=== PATIENT | male | born 1965 | race African-American/Black ===

== ENCOUNTER 2021-07-27 12:07 | Emergency (ER) | payer SELFPAY ==
[~2021-07-27] VITALS: Ht 195.6 cm; Wt 90.7 kg
--- NOTE | 2021-07-27 12:27 | NUR ---
BIBS C/O BODY ACHES X 3 WEEKS, SORE THROAT, COUGH, AND CHILLS X 2 WEEKS. TOOK MEDS BUT DIDN'T WORK. AAOX4, BREATHING EVEN AND UNLABORED, RHONCHI HEARD ON BILATERAL LUNGS. TACHYCARDIC HR 106, PULSE OX 99% ON ROOM AIR.
--- NOTE | 2021-07-27 12:28 | NUR ---
SULEMAN JANE AT PT'S BEDSIDE
--- NOTE | 2021-07-27 12:55 | NUR ---
RAC #20G S/L; PATENT AND INTACT. BLOOD COLLECTED AND GIVEN TO LAB
--- NOTE | 2021-07-27 12:58 | NUR ---
RADIOLOGY AT BEDSIDE
[2021-07-27] MEDS ORDERED: IV NS 0.9% 1,000 ML BAG IV ONE (13:00)
--- NOTE | 2021-07-27 13:06 | NUR ---
COVID PCR AND ANTIGEN COLLECTED AND SENT TO LAB
[2021-07-27 13:12] LABS: BASOPHILS % (AUTO) 0.6 % (0.0-2.0); EOSINOPHILS % (AUTO) 0.2 % (0.0-6.0); HEMATOCRIT 37 % (39-51); HEMOGLOBIN 12.2 g/dL (13.5-17.5); LYMPHOCYTES # (AUTO) 0.9 K/uL (0.8-4.8); LYMPHOCYTES % (AUTO) 14.2 % (20.0-44.0); MEAN CORPUSCULAR HGB CONC 33 g/dl (31.0-36.0); MEAN CORPUSCULAR VOLUME 97 fL (80-96); MONOCYTES # (AUTO) 0.9 K/uL (0.1-1.30); MONOCYTES % (AUTO) 13.6 % (2.0-12.0); NEUTROPHILS # (AUTO) 4.7 K/uL (1.8-8.9); NEUTROPHILS % (AUTO) 71.4 % (43.0-81.0); PLATELET COUNT (AUTO) 169 K/uL (150-450); WHITE BLOOD COUNT (AUTO) 6.6 K/uL (4.3-11.0)
[2021-07-27] MEDS ORDERED: BENZ-13 PO (13:30)
[2021-07-27] MEDS ORDERED: IBUP-1955 PO (13:30)
[2021-07-27 14:06] LABS: ALANINE AMINOTRANSFERASE 105 U/L (12-78); ALBUMIN 3.6 g/dL (3.4-5.0); ALKALINE PHOSPHATASE 72 U/L (46-116); ASPARTATE AMINOTRANSFERASE 172 U/L (15-37); BILIRUBIN,DIRECT 0.3 mg/dL (0.0-0.2); CALCIUM, SERUM 8.6 mg/dL (8.5-10.1); CARBON DIOXIDE 24 mmol/L (21-32); CHLORIDE 95 mmol/L (98-107); CREATININE 0.8 mg/dL (0.6-1.3); GLUCOSE 106 mg/dL (74-106); POTASSIUM 2.9 mmol/L (3.5-5.1); SODIUM SERUM 135 mmol/L (136-145); TOTAL PROTEIN, SERUM 7.9 g/dL (6.4-8.2); UREA NITROGEN, BLOOD 9 mg/dL (7-18)
[2021-07-27] MEDS ORDERED: POTASSIUM CHLORIDE 20 MEQ TAB.PRT.SR PO ONE ×2 (14:30→14:34)
[2021-07-27] MEDS ORDERED: ONDANSETRON HCL/PF 4 MG/2 ML VIAL IV ONE (14:30)
[2021-07-27] MEDS ORDERED: ONDANSETRON HCL/PF 4 MG/2 ML VIAL ONE (14:34)
[2021-07-27] MEDS ORDERED: ONDA4TAB5 PO (14:36)
--- NOTE | 2021-07-27 15:07 | NUR ---
Patient discharged to home in stable condition. rx Written and verbal after care instructions given. Patient verbalizes understanding of instruction. pt ambulatory with a steady gait. Will notifty pt once COVID test is resulted.
[2021-07-27 15:20] VITALS: BP 134/85
== END 2021-07-27 15:21 | disposition home or self-care (01) ==
LOC: ER 12:11
DX: R55 Syncope and collapse (principal); U07.1 COVID-19; R20.2 Paresthesia of skin; E87.6 Hypokalemia
CPT/HCPCS: 36415; 71045; 80048; 80076; 82962; 84484; 85025; 87426; 93005; 96361; 96374; 99285; C9803; J2405; J7030 ×2; U0003